=== PATIENT | female | born 1945 | race Caucasian/White ===

== ENCOUNTER 2020-08-08 05:30 | Day surgery (SDC) | payer OTHER ==
[~2020-08-08 05:30] MED LIST: ACID CONTROL75 MG PO; AMBIEN5 MG PO; CELEXA40 MG PO; CLONAZEPAM1 MG PO; DESILAN PO; DOCUSATE SODIU100 MG PO; LISINOPRIL-HCTZ1 T13 PO; OMEPRAZOLE20 MG PO; PERCOCET 5/3251 TAB PO; PLAVIX75 MG PO; XANAX1 MG PO; ZANTAC300 MG PO
== END 2020-08-08 10:10 | disposition home or self-care (01) ==
LOC: CIR.AMB 05:30
PROVIDERS: ATTEND Anesthesiology Pain Medicine
DX: M43.06 Spondylolysis, lumbar region (principal); M47.896 Other spondylosis, lumbar region; M51.14 Intervertebral disc disorders with radiculopathy, thoracic region; M54.05 Panniculitis affecting regions of neck and back, thoracolumbar region; Z20.822 Contact with and (suspected) exposure to COVID-19

== ENCOUNTER 2023-02-23 15:16 | Emergency (ER) | payer OTHER ==
[~2023-02-23] VITALS: Ht 167.6 cm; Wt 63.5 kg
== END 2023-02-23 20:20 | disposition home or self-care (01) ==
LOC: ER 15:16
PROVIDERS: Emergency Medicine
DX: S09.8XXA Other specified injuries of head, initial encounter (principal); W18.39XA Other fall on same level, initial encounter; Y93.89 Activity, other specified; Y92.89 Other specified places as the place of occurrence of the external cause; S29.8XXA Other specified injuries of thorax, initial encounter; Z91.011 Allergy to milk products; Z88.8 Allergy status to other drugs, medicaments and biological substances; M19.90 Unspecified osteoarthritis, unspecified site; F41.8 Other specified anxiety disorders; I49.8 Other specified cardiac arrhythmias; L40.8 Other psoriasis

== ENCOUNTER 2023-06-18 16:34 | Emergency (ER) | payer OTHER ==
[~2023-06-18] VITALS: Ht 157.5 cm; Wt 65.8 kg
[2023-06-18 19:51] LABS: HEMATOCRIT 35.7 % (36.0-45.00); HEMOGLOBIN 11.9 g/dL (12.0-15.00); MEAN CELL VOLUME 87.7 fL (80.00-100.00); MEAN CORPUSCULAR HEMOGLOBIN 29.2 pg (27.00-32.0); MEAN CORPUSCULAR HGB CONC 33.3 g/dl (32.0-36.0); PLATELET COUNT 249 K/uL (150-450); RED BLOOD COUNT 4.07 M/uL (4.00-6.00); RED CELL DISTRIBUTION WIDTH 13.9 % (11.5-14.5)
[2023-06-18 19:55] LABS: PH,URINE 5.5 (5.0-8.0); URINE APPEARANCE Clear; URINE BILIRRUBIN Negative (NEGATIVE); URINE BLOOD Negative; URINE COLOR Yellow; URINE GLUCOSE Negative (NEGATIVE); URINE LEUKOCYTE Trace; URINE NITRATE Negative; URINE PROTEIN Negative (NEGATIVE); URINE UROBILINOGEN 0.2 E.U./dl
[2023-06-18 19:58] LABS: URINE BACTERIA 80.5 uL (0.0-1933); URINE RBC 7.6 uL (0.0-20.8); URINE WBC 16.5 uL (0.0-23.2)
[2023-06-18 20:12] LABS: CALCIUM 8.9 mg/dL (8.5-10.1); CREATININE SERUM 1.22 mg/dL (0.55-1.02); GFR 42.63; POTASSIUM 4.58 mEq/L (3.5-5.1)
== END 2023-06-18 21:31 | disposition home or self-care (01) ==
LOC: ER 16:35
PROVIDERS: General Practice
DX: R30.0 Dysuria (principal)